=== PATIENT | female | born 1960 | race Caucasian/White ===

== ENCOUNTER → 2017-08-30 | Outpatient (CLI) | payer SELFPAY ==
[~2017-08-30] MED LIST: VENTOLIN17 GM IH; ZESTORETIC,P1 TABLE2 PO
== END | disposition home or self-care (01) ==
LOC: RES 08-23 09:00
DX: J98.4 Other disorders of lung (principal)
CPT/HCPCS: 94060; 94726; 94729

== ENCOUNTER → 2018-01-21 | Outpatient (CLI) | payer OTHER | END | disposition home or self-care (01) | LOC: RAD 14:37 | DX: R06.02 Shortness of breath (principal) | CPT/HCPCS: 71046 ==